=== PATIENT | male | born 1980 | race Two or more races ===

== ENCOUNTER 2021-11-04 18:04 | Emergency (ER) | payer OTHER ==
[~2021-11-04] VITALS: Ht 180.3 cm; Wt 133.8 kg
[2021-11-04] MEDS ORDERED: BACTRIM DS TAB1 EACH PO (19:46)
== END 2021-11-04 19:59 | disposition home or self-care (01) ==
LOC: ER 18:04
DX: N39.0 Urinary tract infection, site not specified (principal)

== ENCOUNTER 2021-11-20 17:45 | Outpatient (CLI) | payer OTHER ==
[~2021-11-20 17:45] MED LIST: BACTRIM DS TAB1 EACH PO
== END 2021-11-20 17:49 | disposition home or self-care (01) ==
LOC: LAB 17:45
PROVIDERS: ATTEND Emergency Medicine
DX: Z20.828 Contact with and (suspected) exposure to other viral communicable diseases (principal)

== ENCOUNTER 2021-12-15 06:18 | Outpatient (CLI) | payer OTHER | END 2021-12-15 06:21 | disposition home or self-care (01) | LOC: LAB 06:18 | PROVIDERS: ATTEND Urology | DX: N30.00 Acute cystitis without hematuria (principal); R31.0 Gross hematuria; N40.2 Nodular prostate without lower urinary tract symptoms; N20.0 Calculus of kidney; N40.1 Benign prostatic hyperplasia with lower urinary tract symptoms ==

== ENCOUNTER 2022-03-27 07:21 | Outpatient (CLI) | payer OTHER | END 2022-03-27 07:24 | disposition home or self-care (01) | LOC: LAB 07:21 | PROVIDERS: ATTEND Urology | DX: R31.0 Gross hematuria (principal) ==

== ENCOUNTER 2022-09-04 08:57 | Outpatient (CLI) | payer OTHER | END 2022-09-04 08:58 | disposition home or self-care (01) | LOC: LAB 08:57 | PROVIDERS: ATTEND Internal Medicine | DX: I10 Essential (primary) hypertension (principal); N39.0 Urinary tract infection, site not specified; E78.9 Disorder of lipoprotein metabolism, unspecified; M15.0 Primary generalized (osteo)arthritis; E06.9 Thyroiditis, unspecified; R73.01 Impaired fasting glucose ==

== ENCOUNTER 2022-09-10 | Outpatient (CLI) | payer OTHER | END 2022-09-10 00:15 | disposition home or self-care (01) | LOC: PPH VACUNA | PROVIDERS: ATTEND Emergency Medicine Pediatric Emergency Medicine | DX: Z23 Encounter for immunization (principal) ==

== ENCOUNTER 2022-09-10 07:11 | Outpatient (CLI) | payer OTHER | END 2022-09-10 07:12 | disposition home or self-care (01) | LOC: LAB 07:11 | PROVIDERS: ATTEND Internal Medicine | DX: R73.09 Other abnormal glucose (principal) ==

== ENCOUNTER 2022-10-05 07:11 | Outpatient (CLI) | payer OTHER | END 2022-10-05 07:18 | disposition home or self-care (01) | LOC: NUCLEAR 07:11 | PROVIDERS: ATTEND Internal Medicine | DX: I10 Essential (primary) hypertension (principal) ==

== ENCOUNTER 2023-07-30 07:37 | Outpatient (CLI) | payer OTHER ==
[2023-07-30 08:58] LABS: HEMATOCRIT 42.8 % (39.0-48.0); HEMOGLOBIN 14.3 g/dL (13-16.00); MEAN CELL VOLUME 84.3 fL (80.0-100.00); MEAN CORPUSCULAR HEMOGLOBIN 28.2 pg (27.00-32.0); MEAN CORPUSCULAR HGB CONC 33.4 g/dl (32.0-36.0); PLATELET COUNT 218 K/uL (150-450); RED BLOOD COUNT 5.08 M/uL (4.00-6.00); RED CELL DISTRIBUTION WIDTH 14.5 % (11.5-14.5)
[2023-07-30 09:11] LABS: BILIRUBIN TOTAL 0.48 mg/dL (0.3-1.2); CALCIUM 9.1 mg/dL (8.5-10.1); CHOL HDL RATIO 4.5 (0-5.0); CREATININE SERUM 0.96 mg/dL (0.70-1.30); GFR 85.09; GLOBULINA 3.6 G/DL (2.4-3.5); POTASSIUM 4.01 mEq/L (3.5-5.1); TOTAL PROTEIN 7.6 gm/dL (6.4-8.2); TSH 1.51 uIU/mL (0.358-3.74)
== END 2023-07-30 07:41 | disposition home or self-care (01) ==
LOC: LAB 07:37
PROVIDERS: ATTEND Internal Medicine
DX: D64.9 Anemia, unspecified (principal); R10.9 Unspecified abdominal pain; E03.9 Hypothyroidism, unspecified; E78.5 Hyperlipidemia, unspecified; E11.9 Type 2 diabetes mellitus without complications; I10 Essential (primary) hypertension

== ENCOUNTER 2025-05-28 06:13 | Outpatient (CLI) | payer OTHER ==
[2025-05-28 07:19] LABS: ob NEGATIVE (NEGATIVE)
[2025-05-28 07:24] LABS: URINE APPEARANCE Clear; URINE BILIRRUBIN Negative (NEGATIVE); URINE BLOOD Negative; URINE COLOR Yellow; URINE GLUCOSE Negative (NEGATIVE); URINE KETONE Negative (NEGATIVE); URINE LEUKOCYTE Negative; URINE NITRATE Negative; URINE PROTEIN Negative (NEGATIVE); URINE UROBILINOGEN 0.2 E.U./dl
[2025-05-28 07:27] LABS: URINE EPITHELIAL CELLS 2.2 uL (0.0-38.8); URINE WBC 2.7 uL (0.0-23.2)
[2025-05-28 07:56] LABS: ALT/SGPT 30.0 U/L (12-78); AST/SGOT 20.0 U/L (15-37); BILIRUBIN TOTAL 0.34 mg/dL (0.3-1.2); BUN CREA RATIO 11.0 (7.0-25.0); CHOL HDL RATIO 3.8 (0-5.0); CREATININE SERUM 1.0 mg/dL (0.70-1.30); GFR 80.44; GLOBULINA 3.4 G/DL (2.4-3.5); GLUCOSE FASTING 98.0 mg/dL (65-100); HDL 42.0 mg/dl (40-60); LDL 93.0 mg/dl (0-130); OSMOLALITY SERUM 284.0 MOSM/KG (275-295); PROSTATIC SPECIFIC ANTIGEN 3.3 NG/ML (0.010-4.00); T4 TOTAL 5.97 UG/DL (4.5-12.1); TSH 2.17 uIU/mL (0.358-3.74); VLDL 25.0 (0-39)
[2025-05-28 08:19] LABS: URINE BACTERIA 3.5 uL (0.0-1933); URINE CAST 0.00 uL (0.0-1.40); URINE RBC 1.7 uL (0.0-20.8)
[2025-05-28 10:32] LABS: BASO % 0.4 % (0.1-1.2); EOS # 0.14 (0.04-0.54); EOS % 1.8 % (0.7-7.0); LYMPH # 1.44 (1.18-3.74); LYMPH % 18.8 % (19.3-53.1); MEAN PLATELET VOLUME 10.80 fl (9.4-12.4); MONO # 0.71 (0.24-0.82); MONO % 9.3 % (4.7-12.5); NEUT # 5.31 (1.56-6.13); NEUT % 69.4 % (34.0-71.1); RED CELL DISTRIBUTION WIDTH 13.4 % (11.6-14.4)
[2025-05-29 09:12] LABS: CA 19-9 21 U/mL (0-35); hav igm Negative (Negative); hep b c Negative (Negative); hep b s ag Negative (Negative)
== END 2025-05-28 06:19 | disposition home or self-care (01) ==
LOC: LAB 06:13
PROVIDERS: ATTEND Internal Medicine Cardiovascular Disease
DX: N39.0 Urinary tract infection, site not specified (principal); I10 Essential (primary) hypertension; E78.1 Pure hyperglyceridemia; N41.0 Acute prostatitis; Z11.9 Encounter for screening for infectious and parasitic diseases, unspecified; Z13.0 Encounter for screening for diseases of the blood and blood-forming organs and certain disorders involving the immune mechanism; Z12.11 Encounter for screening for malignant neoplasm of colon; E03.8 Other specified hypothyroidism